=== PATIENT | female | born 1955 | race Caucasian/White ===

== ENCOUNTER 2021-09-22 01:30 | Day surgery (SDC) | payer MEDICARE, OTHER, SELFPAY ==
[2021-08-27 13:03] VITALS: BMI 35.2
--- NOTE | 2021-09-15 11:16 | PC.NURSE ---
Spoke with pt regarding colonoscopy. Confirmed no changes to home medications or health history since previous PAT phone call on 08/27/21. Updated pt with new procedure date/times. Pt verbalized understanding. Answered questions r/t prep. Catrachito Howell RN
--- NOTE | 2021-09-21 19:08 | PM.HPGS ---
History of Present Illness History of Present Illness Consent: Risks, benefits, and alternatives have been discussed and questions answered. Patient agrees to proceed with procedure. Chief complaint: hx of colon polyps Narrative: Senait Mcdaniels is a 66 year old female referred for colon cancer screening Review of Systems Review of Systems: All systems reviewed & are unremarkable except as noted in HPI and below PMFSH Past Medical History Medical History Obesity Surgical History Surgical History History of gastric bypass Hx of tonsillectomy Social History Social History Smoking status: Former smoker Alcohol intake: never Substance use: never Substance use type: does not use Living arrangements: with family Spiritual care concerns: No Meds Home Medications and Allergies Home Medications Medication Instructions Recorded Confirmed Type No Home Medications 08/27/21 09/22/21 History Allergies Allergy/AdvReac Type Severity Reaction Status Date / Time No Known Allergies Allergy Verified 09/22/21 07:46 Exam Resp: Auscultation: clear to auscultation bilaterally Cardio: Rate: regular rate Rhythm: regular rhythm GI: GI Palp: Yes Soft to palpation and No Tenderness to palpation present (GI) Assessment and Plan Assessment and plan (1) Colon cancer screening: Code(s): Z12.11 - Encounter for screening for malignant neoplasm of colon Status: Acute Assessment and Plan: Colonoscopy with possible biopsy or polypectomy or cautery or injection of substances.
[2021-09-22] VITALS (8 sets, daily range): BP systolic 157–201; BP diastolic 68–107; PULSE 64–78; RESP 16–18; TEMP 36.5; O2SAT 98–100
[2021-09-22] MEDS: LACTATED RINGERS 1,000 ML 150 ML IV CONT (08:01)
--- NOTE | 2021-09-22 08:21 | P.PNAN_ITS ---
Anes - Initial Pre Proc Eval Procedure: Operation Date: 09/22/21 09:00 Proposed Procedures p Screening Colonoscopy - Patel Landry MD Date/Time: 09/22/21 08:21 Surgeon: Patel Landry MD Pre Op Diagnosis: hx of colon polyps Patient Data Age: 66 Gender: F Height: 1.63 m Weight: 93.6 kg Last Vital Signs Temp 36.5 C 09/22/21 07:47 Pulse 70 09/22/21 07:47 Resp 18 09/22/21 07:47 BP 180/68 H 09/22/21 07:47 Pulse Ox 100 09/22/21 07:47 Allergies Allergy/AdvReac Type Severity Reaction Status Date / Time No Known Allergies Allergy Verified 09/22/21 07:46 Home Medications Medication Instructions Recorded Confirmed Type No Home Medications 08/27/21 09/22/21 History Patient hx anesthesia problems: none Family hx anesthesia problems: none Results Review: All pre-operative results and documents have been reviewed as part of the pre-operative evaluation. COUNT INCLUDES [facility] Past Medical History Medical History (Updated 09/22/21 @ 08:22 by Thai Oconnell MD) Obesity Surgical History Surgical History (Updated 09/22/21 @ 08:22 by Thai Oconnell MD) History of gastric bypass Hx of tonsillectomy Social History Social History (Updated 09/22/21 @ 08:22 by Thai Oconnell MD) Smoking status: Former smoker Alcohol intake: never Substance use: never Substance use type: does not use Living arrangements: with family Spiritual care concerns: No Anes - Eval Final PreProcedure Day of Procedure 09/22/21 08:21 Patient weight: obese Heart: regular rate and rhythm Lungs: clear to auscultation Airway: Mallampati scale class II Neurological: alert and oriented Last oral intake: >/= 8 hours ASA classification: II Emergent: no Anesthetic plan: proceed Anesthesia type and monitoring: general GIVS and standard monitoring Results Review: All pre-operative results and documents have been reviewed as part of the pre-operative evaluation. Informed Consent: The patient's anesthetic plan and its attendant risks and benefits were discussed with the patient/family/POA. Questions were solicited and answers provided to the satisfaction of the patient/family/POA.
[2021-09-22] MEDS: hydrALAZINE HCL 20 MG/ML VIAL 10 MG IV PUSH (09:52)
--- NOTE | 2021-09-22 10:01 | SUR.PHASEII ---
0949- Spoke with Dr. Oconnell about patient's blood pressure. 196/94. Patient asymptomatic. States she has no history of hypertension, and she went to the doctor in July and her BP was normal. States her mom has HTN. Verbal order for Hydralazine 10mg IVP, and continue to monitor patient.
--- NOTE | 2021-09-22 12:04 | SUR.PHASEII ---
1027- Spoke with Dr. Oconnell. Informed of patient's blood pressure. 198/92. Okay to discharge home. Instruct patient to follow up with primary care physician.
== END 2021-09-22 10:32 | disposition home or self-care (01) ==
PROVIDERS: PCP Internal Medicine; Visit Provider Internal Medicine Gastroenterology
PROC: 0DJD8ZZ Inspection of Lower Intestinal Tract, Via Natural or Artificial Opening Endoscopic (ICD-10-PCS; CPT 45378; principal; 2021-09-22 09:00)
DX: Z12.11 Encounter for screening for malignant neoplasm of colon (principal); D12.8 Benign neoplasm of rectum; K63.5 Polyp of colon; Z98.84 Bariatric surgery status; E66.9 Obesity, unspecified; Z68.35 Body mass index [BMI] 35.0-35.9, adult
CPT/HCPCS: 45380; 45385; 88305; J0360; J2704; J7120

== ENCOUNTER 2021-12-17 10:34 | Outpatient (CLI) | payer MEDICARE, OTHER, SELFPAY | END 2021-12-17 10:35 | disposition home or self-care (01) | LOC: ANHAUDASC 10:36 | PROVIDERS: PCP Internal Medicine; Visit Provider Otolaryngology | DX: H69.80 Other specified disorders of Eustachian tube, unspecified ear (principal); H90.42 Sensorineural hearing loss, unilateral, left ear, with unrestricted hearing on the contralateral side; H90.71 Mixed conductive and sensorineural hearing loss, unilateral, right ear, with unrestricted hearing on the contralateral side | CPT/HCPCS: 92557; 92567 ==

== ENCOUNTER 2025-09-17 09:48 | Outpatient (CLI) | payer MEDICARE, OTHER, SELFPAY ==
--- OUTSIDE RECORDS SUMMARY | 2008-05-03 02:15 | XMS_ITS | Continuity of Care Document ---
Author Organization [facility] Address [address] [place] [address] Phone Care Team Providers Care Slubber Operator Name Role Phone Estrella OD, Glen Unavailable Unavailable Procedures Procedure Date Office/outpatient Visit, Est Office/outpatient Visit, Est Office/outpatient Visit, Est Advance Directives Directive Yes / No Effective Date File Name No Information Encounters Encounter Description Practice Location Reason(s) For Visit Diagnoses Date Provider Providers Copied on Encounter Office[place]pat [place], [facility] [address] [place] [address] [address], [place], [place], [id number], tel:[phone] [facility] No Information Haim-2 8-200 8 Estrella OD Glen. [address] , [address], [place], [place], [facility], . tel:[phone] Office[place]pat [place], [facility] [address] [place] [address] [address], [place], [place], [id number], [place] tel:[phone] [facility] No Information Haim-2 0-200 8 Estrella OD Glen. [address] , [address], [place], [place], [facility], . tel:[phone] Office/outpat ient Visit, [facility] [address], [place], [place], [id number], tel:[phone] [facility] No Information Haim-1 8-200 8 Estrella OD Glen. [address] , [address], [place], [address], [place]. tel:[phone] Family History Family Member Type Diagnosis Age At Onset No Information Payers Payer name Insurance type Covered constitution party ID Authorsharmila fajardo(s) [facility] [id number] Social History Type Description Quantity Date Captured Comments Sex Female Smoking Status No Information Chief Complaint And Reason For Visit No Information Reason For Referral Reason For Referral No Information History Of Present Illness Encounter Date Complaint History Of Prese nt Illness No Information Functional Status Date Functional Assessmen t No Information Instructions Date Instruction Additional Infor mation No Information Assessments Type Assessment Date No Information Patient Care Teams Name Effective Dates (start - stop) Status Members No Information
--- OUTSIDE RECORDS SUMMARY | 2025-09-17 10:55 | XMS_ITS | Clinical Summary ---
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 Gender Identity Not on file Sexual Orientation Not on file Plan of Treatment Health Maintenance Due Date Last Done Comments Colon Cancer Screening-Colonoscopy 1955 Depression Screening 1956 Fall Risk Assessment 1955 Hepatitis C Screening 1955 DTaP/Tdap/Td Vaccine (1 - Tdap) 1967 Hepatitis B Screening 1974 Zoster Vaccine (1 of 2) 2006 Well Visit 65+ 2021 Breast Cancer Screening-Mammogram 03/07/2025 03/07/2024, 03/06/2023, 08/31/2021, Additional history exists Covid-19 Vaccine (3 - 2024-2 6 season) 2025 02/25/2021, 01/28/2021 Influenza Vaccine (#1) 2025 , 08/20/2021, 08/22/2019 Osteoporosis Screening-Bone Density Scan 03/28/2026 03/28/2024, 08/27/2021 Pneumococcal vaccine 65+ Completed 08/29/2022, 06/2021 Procedures Procedure Name Priority Date/Time Associated Diagnosis Comments DEXA AXIAL SKELETON BONE DENSITY 1 OR MORE SITES Schedule Routine, Read Routine (OP Routine) 03/28/2024 1:20 PM CDT Age-related osteoporosis without current pathological fracture SCREENING MAMMOGRAM BILATERAL W POP Schedule Routine, Read Routine (OP Routine) 03/07/2024 3:13 PM CDT Encounter for screening mammogram for malignant neoplasm of breast from Last 3 Months or Most Recently Relevant to Health Maintenance Results * Dexa Axial Skeleton Bone Density 1 or 2 Site (03/28/2024 1:20 PM CDT) Anatomical Region Laterality Modality Body N/A Other 03/28/2024 2:38 PM CDT Impressions 03/28/2024 2:38 PM CDT Osteopenia. Consider follow-up bone densitometry evaluation in 2-3 years. Electronically signed by: Juan Lafleur II, D.O. Narrative 03/28/2024 2:38 PM CDT Examination: Bone densitometry of the lumbar spine and the left hip History: Osteoporosis screening. Comparison: 08/27/2021. Findings: The bone densitometry of the L1-L3 region, the left femoral neck and the total left hip was calculated using dual-energy x-ray absorptiometry. Menopausal status: Post menopausal Summary: Bone mineral density (BMD) of the lumbar spine (L1-3): T-score -1.4; previously -1.1 Bone mineral density (BMD) of the left femoral neck: T-score -2.2; previously -1.6 Bone mineral density (BMD) of the total left hip: T-score -1.8; previously -1.5 Procedure Note Juan Lafleur II, DO - 03/28/2024 Examination: Bone densitometry of the lumbar spine and the left hip History: Osteoporosis screening. Comparison: 08/27/2021. Findings: The bone densitometry of the L1-L3 region, the left femoral neck and the total left hip was calculated using dual-energy x-ray absorptiometry. Menopausal status: Post menopausal Summary: Bone mineral density (BMD) of the lumbar spine (L1-3): T-score -1.4; previously -1.1 Bone mineral density (BMD) of the left femoral neck: T-score -2.2; previously -1.6 Bone mineral density (BMD) of the total left hip: T-score -1.8; previously -1.5 IMPRESSION: Osteopenia. Consider follow-up bone densitometry evaluation in 2-3 years. Electronically signed by: Juan Lafleur II, D.O. Malik Alonso MD IMG DXA PROCEDURES Fin al Result * Screening Mammogram Bilateral W Pop (03/07/2024 3:13 PM CDT) Anatomical Region Laterality Modality Breast Bilateral Mammography Narrative 03/11/2024 1:08 PM CDT Mammogram Technique: Bilateral Digital Breast Tomosynthesis, Bilateral C-view 2D Screening mammogram. Views obtained: bilateral craniocaudal and bilateral mediolateral oblique. Computer Aided Detection was performed. Mammogram Findings: The present examination has been compared to prior imaging studies performed at [facility] on 05/24/2018, 08/27/2021 and 03/06/2023. There are scattered areas of fibroglandular density. There is no suspicious abnormality in either breast. Impression: There is no mammographic evidence of malignancy. Annual screening mammography is recommended. OVERALL FINAL ASSESSMENT: BI-RADS CATEGORY 1: Negative. Procedure Note Renetta Peetrs MD - 03/11/2024 Mammogram Technique: Bilateral Digital Breast Tomosynthesis, Bilateral C-view 2D Screening mammogram. Views obtained: bilateral craniocaudal and bilateral mediolateral oblique. Computer Aided Detection was performed. Mammogram Findings: The present examination has been compared to prior imaging studies performed at [facility] on 05/24/2018, 08/27/2021 and 03/06/2023. There are scattered areas of fibroglandular density. There is no suspicious abnormality in either breast. Impression: There is no mammographic evidence of malignancy. Annual screening mammography is recommended. OVERALL FINAL ASSESSMENT: BI-RADS CATEGORY 1: Negative. Malik Alonso MD IMG MAMMO PROCEDURES F inal Result from Last 3 Months or Most Recently Relevant to Health Maintenance Insurance MEDICARE [facility] [facility] MEDICARE [place] MEDICARE [place] Care Teams Pest Control Technician Relationship Specialty Start Date End Date Malik Alonso MD PCP - General 11/05/17
--- OUTSIDE RECORDS SUMMARY | 2025-09-17 10:55 | XMS_ITS | Clinical Summary ---
Author Organization [facility] Facility Address [address] [place] [address] Care Team Providers Care Crossband Layer Name Role Phone Malik Alonso MD Primary Care Provider [phone] Medications chlorthalidone 25 MG tablet Take 0.5 tablets (12.5 mg total) by mouth 1 (one) time each day 45 tablet 1 07/05/2022 Active indapamide (LOZOL) 1.25 MG tablet Take 1 tablet (1.25 mg total) by mouth 1 (one) time each day in the morning 90 tablet 1 07/14/2025 Active olmesartan (BENICAR) 20 MG tablet Take 1 tablet (20 mg total) by mouth every night 90 tablet 1 07/14/2025 Active Active Problems Problem Noted Date Diagnosed Date Essential hypertension 05/12/2025 Encounters Date Type Department Care Team Description 07/14/2025 Refill [facility], [address] [address] Loretta Becker CMA from Last 3 Months Social History Tobacco Use Types Packs/Day Years Used Date Smoking Tobacco: Never Assessed Comments Unknown Sex and Gender Information Value Date Recorded Sex Assigned at Not on file Legal Sex Female 4:28 PM EDT Gender Identity Not on file Sexual Orientation Not on file Last Filed Vital Signs Vital Sign Reading Time Taken Comments Blood Pressure 160/80 12/03/2024 1:02 PM CAR REPAIRER APPRENTICE Pulse 72 12/03/2024 1:02 PM CAR REPAIRER APPRENTICE Temperature 36.1 C (97 F) 12/03/2024 1:02 PM CAR REPAIRER APPRENTICE Respiratory Rate 18 12/03/2024 1:02 PM CAR REPAIRER APPRENTICE Oxygen Saturation 99% 12/03/2024 1:02 PM CAR REPAIRER APPRENTICE Inhaled Oxygen Concentration - - Weight 91 kg (200 lb 9.6 oz) 12/03/2024 1:02 PM CAR REPAIRER APPRENTICE Height 162.6 cm (5' 4) 07/05/2022 2:00 PM CDT Body Mass Index 34.43 07/05/2022 2:00 PM CDT Plan of Treatment Upcoming Encounters Date Type Department Care Team (Late st Contact Info) Description 12/09/2025 12:30 PM CAR REPAIRER APPRENTICE Office Visit [facility], [facility] [address] [facility] [address] [place] [id number] Alex Goode DO [address] [facility] [address] [place] [address] Health Maintenance Due Date Last Done Comments Breast Cancer Screening 1956 Colorectal Cancer Screening: Annual FOBT 2005 Colorectal Cancer Screening: Colonoscopy 2005 Colorectal Cancer Screening: Sigmoidoscopy 2005 Influenza Vaccine (#1) 2025 09/02/2024 Pneumococcal Vaccine: 50+ Years Completed 08/29/2022, 07/14/2021 Pneumococcal Vaccine: Peds ( 0 to 5 Years) and At-Risk Patients (6 to 49 Years) Discontinued 08/29/2022, 07/14/2021 Hepatitis B Vaccine Aged Out No longe r eligible based on patient's age to complete this topic Insurance Medicare [facility] Advance Directives Documents on File Type Date Recorded Patient Case Repairer Expl anation Advance Care Planning 05/04/2022 8:35 AM Care Teams Crossband Layer Relationship Specialty Start Date End Date Malik Alonso MD [address] [address] PCP - General Internal Medicine 05/03/22
--- OUTSIDE RECORDS SUMMARY | 2025-09-17 10:55 | XMS_ITS | Patient Health Record ---
Author Organization [facility] Address [address] [place] [address] Care Team Providers Care Social Worker Assistant Name Role Phone Hemant Shah Primary Care Provider [phone] Reason For Referral No Information Immunizations Vaccine Route Administration Date Status Comme nts COVID-19 Moderna 1ST IM Intramuscular 01/28/2021 Administered EUA date 0. Screening reviewed and consent signed. Patient tolerated well. COVID-19 Moderna 2nd IM Intramuscular 02/25/2021 Administered Plan Of Treatment No Information
[2025-09-17 11:41] LABS: INR 1.0; Prothrombin Time 12.7 Seconds (11.1-14.7)
[2025-09-17 11:42] LABS: Partial Thromboplastin Time 34.7 Seconds (22.3-36.8)
== END 2025-09-17 09:49 | disposition home or self-care (01) ==
LOC: ANHSURGERY 09:55
PROVIDERS: Anesthesiology; PCP Internal Medicine; Visit Provider Orthopaedic Surgery
DX: N18.31 Chronic kidney disease, stage 3a (principal); M17.11 Unilateral primary osteoarthritis, right knee
CPT/HCPCS: 36415; 80307; 85610; 85730; 87081

== ENCOUNTER 2025-10-09 00:49 | Day surgery (SDC) | payer MEDICARE, OTHER, SELFPAY ==
--- NOTE | 2025-09-17 09:45 | PC.NURSE ---
[facility] has started construction of its new state of the art ER which will open Spring 2026. With this, we anticipate parking may be a challenge for some our surgical patients and families. Parking spaces are limited but are available for all Surgical, obstetrics, and ER patients sharing this lot. If you arrive and find you are having a hard time finding a parking space, please note that we understand the challenges, please drive around the hospital and park near Hospital Entrance 1. When you enter this entrance, you can ask a volunteer to direct or take you back to the surgical waiting area to check in. We appreciate everyone?s understanding of these expected challenges while we build for your future. Report to the Outpatient Waiting Room, entrance under the green pavilion located off [address], at time _6 am on date __10/09/25 . Planned Procedure Time: __7:30 am .? Time changes happen often and if your time is changed the preop area will call you the afternoon before. - You and your visitor will be asked to self-screen and do not enter if you have any COVID symptoms. Please call surgeon if you need to reschedule. - A mask is optional within the hospital at this time. Patients may have clear liquids (water, carbonated beverages, clear teas, apple juice) until 3 hours prior to surgery( 4:30 am) with a maximum of 20 ounces. - No food from midnight until time of surgery and no smoking, or chewing tobacco (or any form of nicotine). No chewing gum, candy or mints. - Take only the following medications with a SIP of water on the morning of surgery: NONE DO NOT STOP ANY OF YOUR OTHER PRESCRIPTION MEDICATIONS PRIOR TO SURGERY EXCEPT THE FOLLOWING Hold all vitamins and supplements for 3 days per anesthesiologist.LAST DOSE 10/05/25 Medications to discontinue per physician NONE Date to take last dose Please no make-up, nail armenian, hairspray, perfume, deodorant, or body powder the day of surgery.? No jewelry (including any body piercings) or valuables the day of surgery, leave them at home.? Please take a shower or bath the night before, or the morning of, surgery with an antibacterial soap.? Wear comfortable, loose fitting clothing.? Children are encouraged to wear pajamas. - Jewelry must be removed prior to entering the operating room.? Rings and piercings that are not removed may be cut off. - The hospital will not accept responsibility for valuables.? - Please leave all valuables, including medications, at home the day of surgery. If you are going home after surgery, a licensed sweeper driver must drive you home.? - NO public transportation without another adult if you receive anesthesia. - We recommend that an adult stay with you for 24 hours following discharge. - We also recommend that you do not drive, make important decision, drink alcoholic beverages, or take any drugs that were not prescribed by your health care provider for at least 24 hours after your discharge time. For Pediatric surgeries, we recommend two adults accompany the child home. Follow any additional instructions given to you from your surgeon. verbal and written instructions given to __PATIENT_AND SPOUSE TITA and asked if any additional questions and then verbalized understanding. Patient advised to call surgeon office or pre surgery nurse liaison [phone] if any additional questions.
[2025-09-17 09:58] VITALS: BMI 36.3
[2025-09-17 10:51] VITALS: BP 164/85; PULSE 68; RESP 18; TEMP 36.9; O2SAT 100
--- NOTE | 2025-10-06 13:39 | PM.IMHP2 ---
H&P: HPI History of Present Illness Date/Time: 10/06/25 13:39 Chief Complaint: Right knee DJD Narrative: 70-year-old female who presents today for right total knee arthroplasty. Patient has been having pain and symptoms in the knee for years. She had arthroscopy done approximately 19 years ago. Over the last 5 years she has had progressively worsening pain. She has had a gastric bypass in the past as well as chronic kidney disease and therefore is unable take anti-inflammatories. She has had cortisone injections in the past. She had Visco supplementation injections in April of this year, she had no improvement of her symptoms following these injections. Patient has reached a point where the pain in the knee is affecting her daily lifestyle and daily activities. She feels she would rather proceed with total knee arthroplasty at this point rather than continue any nonsurgical treatment. Review of Systems Review of Systems: All systems reviewed & are unremarkable except as noted in HPI and below PMFSH Past Medical History Medical History Obesity Surgical History Surgical History History of lymph node excision neck-1971 Benign neoplasm of left ear 1991 S/P right rotator cuff repair 1994 Vocal cord cyst 1996 S/P gastroplasty x 2 1978 History of arthroscopy of right knee 2006 Hx of tonsillectomy 1968 History of gastric bypass 2008 Family History Family History Father Alcoholism Mother Breast cancer Hypertension Thyroid condition Grandparent Liver cancer Diabetes mellitus Hypertension Grandparent Cerebrovascular accident Social History Social History (Updated 09/26/25 @ 07:58 by Shantell Blanco CMA) Social History: -drinks 1 Mt Dew daily Smoking packs per day: 1 Smoking cigarettes per day: 20.0 Years smoked: 13 Smoking pack-years: 13.00 Smoking status: Former smoker Tobacco type: cigarettes Smoking end date: 11/06/98 Additional smoking assessment comments: DENIES ANY FORM OF TOBACCO USE Alcohol intake: never Substance use: never Substance use type: does not use Current Housing: Decline to Answer Concerned About Future Housing: Decline to Answer Difficulty Paying Gas/Electric Bills: Decline to Answer Difficulty Paying for Meds: Decline to Answer Currently Unemployed: Decline to Answer Education: Decline to Answer Difficulty w/ Childcare or Family Care: No Living arrangements: with family Occupation/Education: retired Spiritual care concerns: No Meds Home Medications and Allergies Home Medications ?Medication ?Instructions ?Recorded ?Confirmed ?Type valacyclovir 1 gram tablet 1,000 mg PO DAILY 12/01/21 09/17/25 History (Valtrex) azelastine 137 mcg (0.1 %) nasal 1 spray intranasal Q12H #30 mL 08/25/22 09/17/25 Rx spray magnesium oxide 400 mg PO BID 05/13/24 09/17/25 History atorvastatin 20 mg tablet (Lipitor) 20 mg PO DAILY 09/03/25 09/17/25 History nunioxix-yznbqkz-vpnd-lutein tablet 1 tablet PO DAILY 09/03/25 09/17/25 History Allergies Allergy/AdvReac Type Severity Reaction Status Date / Time oxycodone Allergy Severe Nausea and Verified 09/26/25 07:12 Vomiting amlodipine (From Norvasc) AdvReac Unknown Swelling Verified 09/26/25 07:12 amoxicillin (From Augmentin) AdvReac Unknown Diarrhea Verified 09/26/25 07:12 clavulanic acid (From AdvReac Unknown Diarrhea Verified 09/26/25 07:12 Augmentin) NSAIDS (Non-Steroidal AdvReac Other Verified 09/26/25 07:12 Anti-Inflamma Exam Narrative: 70-year-old female alert pleasant. She is 5 ft 4 and 210 lb BMI is 36.4. She walks with a slight limp. Range of motion the right knee is from 0-130 degrees. No effusion. Normal stability in the knee. Mild tenderness to the medial joint line to palpation. Skin is all healthy and normal. No edema in lower extremity. Normal quad strength. Hip range of motion is full without discomfort, negative Stinchfield maneuver. 2+ dorsalis pedis and posterior tibial artery pulse palpable Resp: Auscultation: clear to auscultation bilaterally Cardio: Rate: regular rate Rhythm: regular rhythm Assessment and Plan Assessment and plan (1) Right knee DJD: Code(s): M17.11 - Unilateral primary osteoarthritis, right knee Status: Acute Plan 70-year-old female has severe medial compartment osteoarthritis the right knee with continued symptoms. Her symptoms are severe enough that they are affecting her daily lifestyle. Patient feels she is ready proceed with total knee arthroplasty at this point. Surgical procedures well as the risks and complications were discussed in detail all questions were answered we will proceed. Patient will see her primary care doctor for pre-surgical clearance. She has seen cardiology and has been cleared without additional testing. Nasal swab was negative. Hemoglobin 11.0 and platelets were 2 0 to. Chem panel was all within normal limits except for creatinine which is 1.12 and GFR is 53.
[2025-10-09] VITALS (11 sets, daily range): BP systolic 148–182; BP diastolic 67–98; PULSE 66–90; RESP 10–20; TEMP 36–36.9; O2SAT 96–100
--- NOTE | ~2025-10-09 | XR_ITS ---
EXAMINATION: [id number], 10/09/2025 11:17 TRANSPORTATION ASSISTANT HISTORY: POST OP RIGHT TKA COMPARISON: No comparisons available. Findings: No acute fracture or malalignment. Arthroplasty intact Soft tissues unremarkable. Impression: No acute fracture or malalignment. Reviewed, dictated and finalized at location P. SPORTATION ASSISTANT Impression: No acute fracture or malalignment.
[2025-10-09] MEDS: LACTATED RINGERS 1,000 ML 30 ML IV CONT ×3 (07:00→12:42)
[2025-10-09] MEDS: ACETAMINOPHEN 500 MG TABLET 1000 MG PO (07:00)
[2025-10-09] MEDS: VANCOMYCIN 1,500 MG/NS 500 ML 1,500 MG/500 ML BAG 250 MG IVPB (07:00)
[2025-10-09] MEDS: TRANEXAMIC ACID 1,000MG/ISO100 1,000 MG/100 ML BAG 200 MG IVPB (07:00)
--- NOTE | 2025-10-09 07:17 | WPDHPUPDATE1 ---
History and Physical Update Update Date/Time: 10/09/25 07:17 History and Physical has been reviewed, including an updated exam of the patient. There are NO changes in the patient's condition. Risks, benefits, and alternatives have been discussed and questions answered. Patient agrees to proceed with procedure.
--- NOTE | 2025-10-09 07:20 | WPDANESEPPF ---
Anes - Initial Pre Proc Eval Procedure: Operation Date: 10/09/25 07:30 Proposed Procedures p Right Total Knee Arthroplasty - Jason Vernon MD Date/Time: 10/09/25 07:20 Surgeon: Jason Vernon MD Pre Op Diagnosis: OA right knee Patient Data Age: 70 Gender: F Height: 1.63 m Weight: 96.1 kg Last Vital Signs Temp 98.4 F 09/17/25 10:51 Pulse 68 09/17/25 10:51 Resp 18 09/17/25 10:51 BP 164/85 H 09/17/25 10:51 Pulse Ox 100 09/17/25 10:51 O2 Del Method Room Air 09/17/25 10:51 Allergies Allergy/AdvReac Type Severity Reaction Status Date / Time oxycodone Allergy Severe Nausea and Verified 09/26/25 07:12 Vomiting amlodipine (From Norvasc) AdvReac Unknown Swelling Verified 09/26/25 07:12 amoxicillin (From Augmentin) AdvReac Unknown Diarrhea Verified 09/26/25 07:12 clavulanic acid (From AdvReac Unknown Diarrhea Verified 09/26/25 07:12 Augmentin) NSAIDS (Non-Steroidal AdvReac Other Verified 09/26/25 07:12 Anti-Inflamma Home Medications ?Medication ?Instructions ?Recorded ?Confirmed ?Type valacyclovir 1 gram tablet 1,000 mg PO DAILY 12/01/21 09/17/25 History (Valtrex) azelastine 137 mcg (0.1 %) nasal 1 spray intranasal Q12H #30 mL 08/25/22 09/17/25 Rx spray magnesium oxide 400 mg PO BID 05/13/24 09/17/25 History atorvastatin 20 mg tablet (Lipitor) 20 mg PO DAILY 09/03/25 09/17/25 History egptmuif-kktvzxk-opfr-lutein tablet 1 tablet PO DAILY 09/03/25 09/17/25 History Laboratory Tests 10/09/25 06:30 Blood Type A Positive Antibody Screen Pending Patient hx anesthesia problems: none Family hx anesthesia problems: none Results Review: All pre-operative results and documents have been reviewed as part of the pre-operative evaluation. 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 History of arthroscopy of right knee 2006 Hx of tonsillectomy 1968 History of gastric bypass 2009 Family History Family History Father Alcoholism Mother Breast cancer Hypertension Thyroid condition Grandparent Liver cancer Diabetes mellitus Hypertension Grandparent Cerebrovascular accident Social History Social History Social History: -drinks 1 Mt Dew daily Smoking packs per day: 1 Smoking cigarettes per day: 20.0 Years smoked: 13 Smoking pack-years: 13.00 Smoking status: Former smoker Tobacco type: cigarettes Smoking end date: 11/06/98 Additional smoking assessment comments: DENIES ANY FORM OF TOBACCO USE Alcohol intake: never Substance use: never Substance use type: does not use Current Housing: Decline to Answer Concerned About Future Housing: Decline to Answer Difficulty Paying Gas/Electric Bills: Decline to Answer Difficulty Paying for Meds: Decline to Answer Currently Unemployed: Decline to Answer Education: Decline to Answer Difficulty w/ Childcare or Family Care: No Living arrangements: with family Occupation/Education: retired Spiritual care concerns: No Anes - Eval Final PreProcedure Day of Procedure 10/09/25 07:20 Patient weight: obese Lungs: normal air movement Airway: Mallampati scale class II Neurological: alert and oriented Last oral intake: >/= 8 hours ASA classification: III Emergent: no Anesthetic plan: proceed Anesthesia type and monitoring: general ETT and standard monitoring Results Review: All pre-operative results and documents have been reviewed as part of the pre-operative evaluation. HTN, hyperlipidemia, EKG w NSR. Pt has diff w NSAIDs, after discussion w Dr Vernon will avoid NSAIDs, add local intraop, preop tyl given. Informed Consent: The patient's anesthetic plan and its attendant risks and benefits were discussed with the patient/family/POA. Questions were solicited and answers provided to the satisfaction of the patient/family/POA.
[2025-10-09] MEDS: ceFAZolin 2 GM in SODIUM CHLORIDE 0.9% IV 50 ML 100 ML IVPB ×2 (07:55→17:00)
[2025-10-09] MEDS: SODIUM CHLORIDE 0.9% IV 37.7 ML, MORPHINE SULFATE INJ (*CRX) 2 MG, ROPivacaine HCL 1% 2... INFILTRATE (08:13)
[2025-10-09] MEDS: GENTAMICIN BONE CEMENT REFOBACIN 1 EACH TOPICAL (09:51)
[2025-10-09] MEDS: TRANEXAMIC ACID 1,000 MG/10 ML AMPUL 1000 MG IV PUSH (10:46)
--- NOTE | 2025-10-09 11:19 | P.OP_ITS ---
Procedure Note - Detailed Date of Procedure 10/09/25 Pre-op Diagnosis OA right knee Post-op Diagnosis Other (Osteoarthritis right knee, obesity with BMI of 37.2) Procedure Performed Right total knee arthroplasty Surgeon Jason Vernon MD Clinical Resource Coordinator philippe Anesthesia General Description of Procedure Patient was brought to the operating room and general anesthesia was administered. The patient received 2 g of Ancef weight based vancomycin 1 g of TXA preoperatively and the right knee prepped draped usual fashion. She had significant obesity around the knee which added to the surgical difficulty and adding approximately 40 minutes to the procedure. The right lower extremity was prepped draped usual fashion. The limb was exsanguinated tourniquet elevated to 300 mmHg. A 7 in longitudinal midline incision was made in the standard parapatellar arthrotomy utilized. Partial excision of infrapatellar fat pad carried out. The patella had no osteophytes had normal cartilage except for intermediate grade chondromalacia in the central 1 cm and I felt was appropriate for non resurfacing. A conservative lateral facetectomy was performed. There is a fair amount of venous bleeding was we put the tourniquet down re-exsanguinated and put the tourniquet up to 325 mmHg. He A guide magalie was inserted on femoral canal after aspiration of canal contents using the 5 degree valgus cutting bushing 9 mm of bone removed the distal femur. This removed about 6 mm laterally. Next the tibial plateau was cut. Cut was made perpendicular to the axis of the tibia. This removed about a 0.5 mm of bone from the low point of the medial tibial plateau where area. Meniscal remnants were excised PCL recessed. Flexion gap measured 8 mm medially and 12 mm laterally. Femoral sizing guide was applied to the distal femur set at 5? of external rotation. AP and chamfer cuts were made through the size 65 vanguard cutting block and the 65 femur fit nicely resting on the anterior cortex without notch and hanging over about a half a mm laterally. The tibia was assessed and I felt that was about 1 degree of valgus in and therefore we resected an additional 1 mm of bone from the medial tibial plateau after reapplied the tibial cutting block using a new hole. This removed about 1 mm of bone medially and the listen 1/2 mm laterally. The this I felt gave us perfect alignment the tibial component and a better surface medially rather than the sclerotic subchondral bone. Perfect flatness of the tibial plateau was confirmed. The size 71 fit line to line posterolateral to anteromedial proper rotation this was punched. On trialing the 10 mm insert seemed appropriate with respect to an terior posterior drawer 90?. However we lacked extension. Extension we had no play medially 2 or 3 mm of play laterally. Conservative removal of medial tibial osteophyte was performed taking care to avoid release of the deep medial capsule as she did not have a significant varus deformity preop and the additional mm of bone was removed the distal femur. On trialing we are little bit close to full extension of but still had a positive bounce. Therefore an additional mm bone was removed the distal femur posterior femoral bone proximal to the posterior condylar portions of the trial was removed and this time the knee came out to full extension with the 10 insert with 1-2 mm of medial opening and 3 mm of lateral opening. He seemed to have appropriate stability at 90? to anterior posterior drawer. Lug holes were drilled in the femoral component. We put the tourniquet down at 90 minutes earlier and this time limb was re- exsanguinated tourniquet elevated to 350 mmHg the wound was thoroughly irrigated with Ancef solution a step drill was used to make multiple perforations in the tibial plateau and distal femur. Bony surfaces were thoroughly irrigated and dried. Two batches of methylmethacrylate 1 with gentamicin powder were mixed and immediately applied the 71 vanguard tibial tray and then the size 65 right cruciate retaining femoral component. Cement was applied to the tibial plateau and in the canal and thoroughly pressurized tibial component fully seated cement applied the femur the femoral component fully seated the knee brought to extension with a 11 mm 5 and 1 insert for cement pressurization. After cement hardening excess cement was sought for removed and hemostasis was achieved. The I trialed with the 10 insert and AP drawer seemed reasonable but with the 1st anatomic pathology assistant using a bone hook to lift up on the femur un weighting it, I felt that the anterior posterior drawer was a little bit too loose we trialed with the 10 insert which had appropriate play but with unloading did not show excessive a laxity. The knee in extension had 2-3 mm of opening laterally the and 1 mm of opening medially but had a barely positive bounce. A very conservative central posterior femoral capsule incomplete release was performed releasing a couple of type bands and on read trialing the knee clearly came out to full extension with a negative bounce 0.5 mm of medial opening 2 mm of lateral opening. Patellar tracking was not optimal until a lateral retinacular release was performed and that it was central throughout range of motion. Hemostasis was achieved. Wound irrigated again with Ancef solution size 11 insert placed without left without difficulty locked with a locking pin range of motion stability patellar tracking reconfirmed. Arthrotomy was closed with 2. Vicryl and 1. Unidirectional barbed Stratafix suture and gravity flexion was to 120. Skin closed with 2 subcutaneous Vicryl 3-0 subcuticular Monocryl and glue. EBL is 3 in cc. Two additional g of Ancef 1 g TXA given time wound closure. No known complications.
[2025-10-09] MEDS: ONDANSETRON INJ 4 MG/2 ML VIAL IV PUSH (11:30)
--- NOTE | 2025-10-09 11:37 | PM.OP ---
Procedure Note - Brief Procedure Note - Brief Date of procedure: 10/09/25 OA right knee Procedure performed: Right total knee arthroplasty Surgeon: Anselmo Price PA-C Findings: 70-year-old female underwent right total knee arthroplasty on 10/09. I was involved in the procedure including positioning the patient on the OR table and 1st assisting through the time surgery. Total time spent was 3-1/2 hours
[2025-10-09] MEDS: ACETAMINOPHEN 500 MG TABLET PO ×3 (14:21→22:27)
[2025-10-09] MEDS: CYCLOBENZAPRINE HCL 5 MG TABLET PO ×2 (14:21→22:27)
[2025-10-09] MEDS: traMADol HCL (*CRX) 25 MG TABLET PO ×2 (14:21→17:27)
--- NOTE | 2025-10-09 16:39 | P.CONIM_ITS ---
Assessment and Plan Assessment and plan (1) Right knee DJD: Code(s): M17.11 - Unilateral primary osteoarthritis, right knee Status: Chronic Assessment and Plan: Total right knee arthroplasty on 10/09/2025. Patient with no complaints of postop pain at this time. Has been up walking with physical therapy. Patient has a history of being rather sensitive to narcotics. -PT/OT -pain control with acetaminophen, tramadol, hydromorphone-monitor for over- sedation -Zofran p.r.n. -encourage incentive spirometer use (2) Hyperlipidemia: Code(s): E78.5 - Hyperlipidemia, unspecified Status: Chronic Assessment and Plan: Continue atorvastatin Plan Diet: Regular DVT prophylaxis: SCDs lines/drains: PIV Fluids: Intraoperative Code status: Full Prior Studies I have reviewed the following patient records and this information was taken into consideration when formulating the assessment and plan.: previous labs, previous ER visits, previous hospitalizations and previous clinic visits Time Spent with Patient Time with patient: less than 45 minutes HPI Date of Consult Consult date: 10/10/25 Requesting Physician: Jason Vernon MD Primary Care Provider: Malik Alonso, Consult Narrative Reason for consult: Medical management Narrative: Senait Mcdaniels is a 70 year old female with a past medical history of hyperlipidemia and gastric bypass presents to the hospital on 10/09/2025 for a planned right total knee arthroplasty. Patient underwent arthroscopic partial medial meniscectomy and stead mid pick microfracture of full-thickness cartilage defect in the medial femoral condyle In the right knee with subsequent use of continuous passive motion machine and period of nonweightbearing to stimulate fibrocartilage growth about 19 years ago. She has gradually developed worsening arthritis that have impacted her ADLs. Patient has been taking NSAIDs intermittently but was recently found to have CKD and advised to stop NSAIDs by her head of maintenance. Patient has struggled with her weight throughout her life but has gained about 25 lb over the past year due to her inability to walk as far she used to. She was able to walk 3 miles a day until the past year. She can only walk 1 mi now and will be pain for several days afterwards. Patient has had physical therapy intermittently for her right knee. She has been receiving Euflexxa injections at [facility] every 6 months and her last series was in mid April and this last series was not helpful. Preop right knee x-ray in August 2025 demonstrated narrowing of medial compartment joint space to 1 mm on the AP stork view and medial compartment shows [id number] contact on the PA flexion Stork view. Patient wished to proceed with right total knee arthroplasty. Patient tolerated the operation well and postop right knee x-ray demonstrated an intact arthroplasty. No acute fracture or malalignment. Review of Systems Review of Systems: All systems reviewed & are unremarkable except as noted in HPI and below [facility] Past Medical History Medical History (Updated 10/10/25 @ 02:16 by Kathryn Goetz APRN) Hyperlipidemia Obesity Surgical History Surgical History History of lymph node excision neck-1971 Benign neoplasm of left ear 1991 S/P right rotator cuff repair 1993 Vocal cord cyst 1995 S/P gastroplasty x 2 1978 History of arthroscopy of right knee 2005 Hx of tonsillectomy 1968 History of gastric bypass 2008 Family History Family History Father Alcoholism Mother Breast cancer Hypertension Thyroid condition Grandparent Liver cancer Diabetes mellitus Hypertension Grandparent Cerebrovascular accident Social History Social History Social History: -drinks 1 Mt Dew daily Smoking packs per day: 1 Smoking cigarettes per day: 20.0 Years smoked: 13 Smoking pack-years: 13.00 Smoking status: Former smoker Alcohol intake: never Substance use: never Substance use type: does not use Lack of Transportation: No Lack of Food: Never True Current Housing: I Have Housing Concerned About Future Housing: No Difficulty Paying Gas/Electric Bills: No Difficulty Paying for Meds: No Currently Unemployed: No Education: Decline to Answer Difficulty w/ Childcare or Family Care: No Living arrangements: with family Occupation/Education: retired Spiritual care concerns: No Meds Home Medications and Allergies Home Medications ?Medication ?Instructions ?Recorded ?Confirmed ?Type valacyclovir 1 gram tablet 1,000 mg PO DAILY 12/01/21 09/17/25 History (Valtrex) azelastine 137 mcg (0.1 %) nasal 1 spray intranasal Q1 2H #30 mL 08/25/22 09/17/25 Rx spray magnesium oxide 400 mg PO BID 05/13/2409/17 History atorvastatin 20 mg tablet (Lipitor) 20 mg PO DAILY 09/17/25 History ysmheoet-nlzlttz-jvee-lutein tablet 1 tablet PO DAILY 09/03/25 10/09/25 History Allergies Allergy/AdvReac Type Severity Reaction Status Date / Time oxycodone Allergy Severe Nausea and Verified 10/09/25 13:33 Vomiting amlodipine (From Norvasc) AdvReac Unknown Swelling Verified 10/09/25 13:33 amoxicillin (From Augmentin) AdvReac Unknown Diarrhea Verified 10/09/25 13:33 clavulanic acid (From AdvReac Unknown Diarrhea Verified 10/09/25 13:33 Augmentin) NSAIDS (Non-Steroidal AdvReac Other Verified 10/09/25 13:33 Anti-Inflamma Vital Signs Vital Signs - 24 hr 10/09/25 07:00 10/09/25 11:25 10/09/25 11:40 Temperature 98.1 F 98.4 F Pulse Rate 76 88 76 Respiratory Rate 16 12 12 Blood Pressure 174/70 H 166/74 H 166/80 H Pulse Oximetry 100 100 100 Oxygen Delivery Room Air Simple Face Mask Simple Face Mask Oxygen Flow Rate 8 8 10/09/25 11:55 10/09/25 12:10 10/09/25 12:25 Temperature Pulse Rate 80 80 77 Respiratory Rate 10 L 10 L 10 L Blood Pressure 177/78 H 172/83 H 182/89 H Pulse Oximetry 100 96 100 Oxygen Delivery Simple Face Mask Room Air Room Air Oxygen Flow Rate 8 10/09/25 12:40 10/09/25 12:55 10/09/25 13:05 Temperature 96.8 F L Pulse Rate 73 75 66 Respiratory Rate 10 L 11 L 12 Blood Pressure 175/77 H 180/98 H 148/78 H Pulse Oximetry 100 97 98 Oxygen Delivery Room Air Room Air Oxygen Flow Rate 10/09/25 13:41 10/09/25 13:45 10/09/25 14:16 Temperature Pulse Rate Respiratory Rate Blood Pressure Pulse Oximetry Oxygen Delivery Room Air Room Air Room Air Oxygen Flow Rate Exam Narrative: GENERAL: non-toxic appearing, in no acute distress. HEAD: Normocephalic, atraumatic. EYES: PERRLA. Conjunctivae clear. NOSE: Normal no drainage. THROAT: Pharynx clear, no exudate. NECK: Trachea midline. No adenopathy, no masses. RESPIRATORY: Airway patent, respirations nonlabored. CTA. CARDIOVASCULAR: Regular rate and rhythm BREASTS: Defer GASTROINTESTINAL: Abdomen is soft and nontender. No organomegaly. Bowel sounds normal in all quadrants. GENITOURINARY: Defer MUSCULOSKELETAL: Moves all extremities. No gross deformities. Right knee surgical dressing intact. SKIN: Warm, dry, normal color. NEURO: A&O X4. Speech clear PSYCHIATRIC: Normal interaction Quality VTE Prophylaxis VTE prophylaxis: mechanical ordered Hospitalist [facility] Advance Care Plan I have confirmed that the patient's Advanced Care Plan is present, code status is documented, or surrogate decision maker is listed in patient medical record.: Yes Medication Reconciliation I have utilized all available resources to obtain, update and review the patients current medications (includes all prescriptions, OTC, herbals, cannabis, and nutritional supplements).: Yes
[2025-10-09] MEDS: SENNA/DOCUSATE SODIUM TABLET 2 TAB PO (17:27)
[2025-10-09] MEDS: VANCOMYCIN HCL 1,000 MG in SODIUM CHLORIDE 0.9% IV 250 ML 250 MG IVPB (18:45)
[2025-10-09] MEDS: FAMOTIDINE 20 MG TABLET PO (22:27)
[2025-10-10] MEDS: ceFAZolin 2 GM in SODIUM CHLORIDE 0.9% IV 50 ML 100 ML IVPB ×2 (00:48→09:22)
[2025-10-10] MEDS: traMADol HCL (*CRX) 25 MG TABLET PO ×3 (02:16→09:10)
[2025-10-10] MEDS: ACETAMINOPHEN 500 MG TABLET PO ×3 (02:16→09:10)
[2025-10-10 02:31] VITALS: BP 147/58; PULSE 87; RESP 18; TEMP 36.4; O2SAT 100
[2025-10-10 05:57] VITALS: BP 151/66; PULSE 78; RESP 16; TEMP 36.5; O2SAT 99
[2025-10-10] MEDS: CYCLOBENZAPRINE HCL 5 MG TABLET PO (06:09)
[2025-10-10] MEDS: VANCOMYCIN HCL 1,000 MG in SODIUM CHLORIDE 0.9% IV 250 ML 250 MG IVPB (06:10)
[2025-10-10 07:27] LABS: Hematocrit 30.8 % (37.0-47.0); Hemoglobin 9.4 g/dL (12.0-15.0); Immature Granulocyte Percent A 0.5 % (0-0.5); Lymphocytes Absolute Auto 1.24 K/mm3 (0.9-3.2); Mean Corpuscular HGB Conc 30.5 g/dl (32-36); Mean Corpuscular Hemoglobin 24.7 pg (26-34); Mean Corpuscular Volume 80.8 fl (80-100); Nucleated Red Blood Cells Absolute Auto 0.000 K/mm3 (0.0-0.012); Nucleated Red Blood Cells Perc 0.0 % (0.0-0.2); Platelet Count Result 240 k/mm3 (150-375); Red Blood Count 3.81 M/mm3 (4.2-5.4); White Blood Count 16.0 K/mm3 (4.5-10.0)
[2025-10-10 07:49] LABS: Alanine Aminotransferase 25 U/L (6-35); Albumin Level 3.6 g/dL (3.5-5.1); Alkaline Phosphatase 98 U/L (38-126); Anion Gap 5 mmol/L (4-12); Aspartate Amino Transferase 38 U/L (14-36); Bilirubin,Total 0.4 mg/dL (0.2-1.3); Blood Urea Nitrogen 22 mg/dL (7-17); Calcium 8.3 mg/dL (8.4-10.2); Carbon Dioxide 25 mmol/L (22-30); Chloride 107 mmol/L (98-107); Estimated CRCL calculation 49 ml/min; Estimated Glomerular Filt Rate 49; Glucose 112 mg/dL (65-110); Potassium 4.0 mmol/L (3.4-5.0); Sodium 137 mmol/L (137-145); Total Protein 6.7 g/dL (6.3-8.2)
--- NOTE | 2025-10-10 08:15 | PM.PNORT ---
Subjective Subjective Date/Time Seen: 10/10/25 08:15 Interval history: Postop day 1 patient is alert. She is afebrile vital signs are stable. Dressing is dry and intact. Neurovascularly she is intact. Pain is very well controlled. She is tolerating the tramadol without any GI symptoms. She was up walking with physical therapy yesterday and is comfortable. Her soft tissue block as worn off as of the morning of postop day 1. Morning labs are noted. Patient is able do a straight leg raise in the bed this morning without any discomfort. She has a knee fully extended. She can actively flex in the bed to about 80?. Overall patient is doing very well. Plan have the patient work with therapy this morning and once IV antibiotics have been completed she will be discharged later this morning Objective Data Vital Signs Vital Signs: Vital Signs - 24 hr 10/09/25 11:25 10/09/25 11:40 10/09/25 11:55 Temperature 98.4 F Pulse Rate 88 76 80 Respiratory Rate 12 12 10 L Blood Pressure 166/74 H 166/80 H 177/78 H Pulse Oximetry 100 100 100 Oxygen Delivery Simple Face Mask Simple Face Mask Simple Face Mask Oxygen Flow Rate 8 8 8 10/09/25 12:10 10/09/25 12:25 10/09/25 12:40 Temperature Pulse Rate 80 77 73 Respiratory Rate 10 L 10 L 10 L Blood Pressure 172/83 H 182/89 H 175/77 H Pulse Oximetry 96 100 100 Oxygen Delivery Room Air Room Air Room Air Oxygen Flow Rate 10/09/25 12:55 10/09/25 13:05 10/09/25 13:41 Temperature 96.8 F L Pulse Rate 75 66 Respiratory Rate 11 L 12 Blood Pressure 180/98 H 148/78 H Pulse Oximetry 97 98 Oxygen Delivery Room Air Room Air Oxygen Flow Rate 10/09/25 13:45 10/09/25 14:16 10/09/25 14:50 Temperature 96.9 F L Pulse Rate 90 Respiratory Rate 20 Blood Pressure 170/67 H Pulse Oximetry 100 Oxygen Delivery Room Air Room Air Oxygen Flow Rate 10/09/25 22:50 10/10/25 02:31 10/10/25 05:57 Temperature 97.4 F L 97.6 F 97.7 F Pulse Rate 84 87 78 Respiratory Rate 16 18 16 Blood Pressure 159/68 H 147/58 H 151/66 H Pulse Oximetry 100 100 99 Oxygen Delivery Oxygen Flow Rate Intake/Output Intake/Output: Intake & Output 10/07/25 10/08/25 10/09/25 10/10/25 23:59 23:59 23:59 23:59 Intake Total 2530 240 Output Total 425 Balance 2105 240 Meds/Results Medications: Active Medications Generic Name Dose Route Start Last Admin Trade Name Freq PRN Reason Stop Dose Admin Acetaminophen 500 mg 10/09/25 14:00 10/10/25 06:09 Acetaminophen 500 Mg Tablet PO 500 mg Q4H THAD Administration Apixaban 2.5 mg 10/10/25 09:00 Apixaban 2.5 Mg Tablet PO 10/21/25 21:01 Q12HR THAD Atorvastatin Calcium 20 mg 10/10/25 09:00 Atorvastatin 20 Mg Tablet PO DAILY THAD Azelastine HCl 1 spray 10/09/25 21:00 10/09/25 22:30 Azelastine Hcl Nasal 0.1% 137 Mcg/Spr 30 Ml Btl NASAL Not Given Q12HR [facility] Cefdinir 300 mg 10/10/25 09:00 Cefdinir 300 Mg Capsule PO Q12HR [facility] Cyclobenzaprine HCl 5 mg 10/09/25 14:00 10/10/25 06:09 Cyclobenzaprine Hcl 5 Mg Tablet PO 5 mg Q8H THAD Administration Diphenhydramine HCl 25 mg 10/09/25 13:05 Diphenhydramine Hcl Inj 50 Mg/Ml Vial IV PUSH Q6H PRN Itching Famotidine 20 mg 10/09/25 21:00 10/09/25 22:27 Famotidine 20 Mg Tablet PO 20 mg Q12HR THAD Administration Hydromorphone HCl 1 mg 10/09/25 13:05 Hydromorphone Hcl Inj (*Crx) 1 Mg/Ml Syr IV PUSH Q2H PRN Breakthrough Pain Rated 7-10 or NPO Cefazolin Sodium 2 gm/ Sodium 50 mls @ 100 mls/hr 10/09/25 16:00 10/10/25 00:48 Chloride IVPB 10/10/25 08:29 100 mls/hr Q8H THAD Administration Naloxone HCl 0.1 mg 10/09/25 13:05 Naloxone Hcl 0.4 Mg/Ml Vial IV PUSH Q2M PRN Opiate Reversal Ondansetron HCl 4 mg 10/09/25 13:05 Ondansetron Inj 4 Mg/2 Ml Vial IV PUSH Q4H PRN Nausea And Vomiting Polyethylene Glycol 17 gm 10/10/25 09:00 Polyethylene Glycol 3350 17 Gm Powd.Pack PO QAM [facility] Senna/Docusate Sodium 2 tab 10/09/25 17:00 10/09/25 17:27 Senna/Docusate Sodium Tablet PO 2 tab BID THAD Administration Tramadol HCl 25 mg 10/09/25 14:00 10/10/25 06:09 Tramadol Hcl (*Crx) 25 Mg Tablet PO 25 mg Q4H THAD Administration Tramadol HCl 25 mg 10/09/25 13:05 Tramadol Hcl (*Crx) 25 Mg Tablet PO Q4H PRN Pain Rated 4-6 Valacyclovir HCl 1,000 mg 10/10/25 09:00 Valacyclovir Hcl 500 Mg Tablet PO DAILY [facility] Radiology Results: ITS Impressions Knee X-Ray 10/09/25 11:26 Impression: No acute fracture or malalignment. Labs Labs: Laboratory Results - last 24 hr 10/10/25 06:24 WBC 16.0 H RBC 3.81 L Hgb 9.4 L Hct 30.8 L MCV 80.8 MCH 24.7 L MCHC 30.5 L RDW 15.6 H Plt Count 240 MPV 9.9 Immature Gran % (Auto) 0.5 Neut % (Auto) 84.2 H Lymph % (Auto) 7.8 L Fountain % (Auto) 7.3 Eos % (Auto) 0.0 Baso % (Auto) 0.2 Lymph # (Auto) 1.24 Fountain # (Auto) 1.2 H Eos # (Auto) 0.0 Baso # (Auto) 0.0 Abs Immat Gran (auto) 0.08 H Absolute Neuts (auto) 13.5 H Absolute Nucleated RBC 0.000 Nucleated RBC % 0.0 Sodium 137 Potassium 4.0 Chloride 107 Carbon Dioxide 25 Anion Gap 5 BUN 22 H Creatinine 1.10 H Estim Creat Clear Calc 49 Estimated GFR 49 L Glucose 112 H Calcium 8.3 L Total Bilirubin 0.4 AST 38 H ALT 25 Alkaline Phosphatase 98 Total Protein 6.7 Albumin 3.6
[2025-10-10] MEDS: SENNA/DOCUSATE SODIUM TABLET 2 TAB PO (09:09)
[2025-10-10] MEDS: APIXABAN 2.5 MG TABLET PO (09:09)
[2025-10-10] MEDS: FAMOTIDINE 20 MG TABLET PO (09:09)
[2025-10-10] MEDS: CEFDINIR 300 MG CAPSULE PO (09:10)
[2025-10-10 09:53] VITALS: O2SAT 99
== END 2025-10-10 10:15 ==
LOC: ANHSURGERY 05:48 → ANH3MEDSUR 13:17
PROVIDERS: Physician Assistant Surgical; PCP Internal Medicine; Visit Provider Orthopaedic Surgery
PROC: (CPT 27447; principal; 2025-10-09 07:30)
DX: M17.11 Unilateral primary osteoarthritis, right knee (principal); E78.5 Hyperlipidemia, unspecified; E66.9 Obesity, unspecified; Z68.37 Body mass index [BMI] 37.0-37.9, adult; Z87.891 Personal history of nicotine dependence
CPT/HCPCS: 27447; 36415; 73560; 80053; 85025; 86850; 86900; 86901; 97110; 97161; 97166; 97530; 97535; J0690; A9270; C1713; C1776; J0166; J1100; J1885; J2003; J2250; J2270; J2405; J2704; J2795; J3010; J3290; J3373; J7050; J7120